=== PATIENT | male | born 2000 | race African-American/Black ===

== ENCOUNTER 2020-06-04 00:22 | Emergency (ER) | payer SELFPAY ==
[~2020-06-04] VITALS: Ht 177.8 cm; Wt 73.0 kg
[2020-06-04 01:04] VITALS: BP 128/76
== END 2020-06-04 01:04 | disposition home or self-care (01) ==
LOC: ER 00:22
DX: T67.5XXA Heat exhaustion, unspecified, initial encounter (principal); X30.XXXA Exposure to excessive natural heat, initial encounter; Y93.9 Activity, unspecified; Y92.9 Unspecified place or not applicable
CPT/HCPCS: 99283